=== PATIENT | female | born 1955 | race American Indian/Alaskan Native ===

== ENCOUNTER 2018-09-07 07:59 | Day surgery (SDC) | payer OTHER ==
[2018-09-07] MEDS ORDERED: NACL 0.9% 1000 ML 1,000 ML IV SCH (10:00)
--- NOTE | 2018-09-07 10:08 | Anesthesia Day of Surgery ---
Anesthesia Day of Surgery - Day of Surgery Patient Examined: Yes Patient H&P Reviewed: Yes Patient is NPO: Yes
--- NOTE | 2018-09-07 10:08 | Anesthesia Consultation ---
Anesthesia Consult and Med Hx Date of service: 09/07/18 - Airway Anesthetic Teeth Evaluation: Good ROM Head & Neck: Adequate Mental/Hyoid Distance: Adequate Mallampati Class: Class II Intubation Access Assessment: Probably Good - Pre-Operative Health Status ASA Pre-Surgery Classification: ASA2 Proposed Anesthetic Plan: MAC (Dm, high cholesterol) - Cardiovascular System Hx Hypertension: Yes
[2018-09-07] MEDS ORDERED: DIPRIVAN 10 MG/ML IV ONE ×2 (10:13)
[2018-09-07] MEDS ORDERED: NEO SYNEPHRINE ONE (10:50)
[2018-09-07] MEDS ORDERED: NACL 0.9% 100 ML ONE (10:50)
--- NOTE | 2018-09-07 10:51 | Procedure Note ---
Date of procedure: 09/07/18 Pre-op diagnosis: Lower GI Bleeding Post-op diagnosis: other Procedure: Colonoscopy with Biopsy Anesthesia: MAC Surgeon: PORTIA SNEED Pathology: list Specimen disposition: to lab Condition: stable Disposition: same day (Avoid aspirin and aspirin related products 5 days. Follow upin 1 to 2 weeks ([phone]).)
--- NOTE | 2018-09-07 10:59 | Operative Report ---
NAME OF PROCEDURE: Colonoscopy. INDICATIONS: This is a 63-year-old [place] female who had lately been having some lower GI bleeding. She has ever had a colonoscopy before. Colonoscopy was done to assess for the problem. DESCRIPTION OF PROCEDURE: Procedure was done after getting informed consent with MAC anesthesia. Initial rectal exam did show what appeared like a raised area in the rectum within possibly 10 cm of the anal verge. This was better noticed when the scope was passed through the rectum and on to the cecum. Cecum was identified with ileocecal valve and the appendiceal orifice. Visualization was fair to good. Cecum, ascending colon and transverse colon showed normal mucosa. There were a few minor left colon diverticula noted. In the rectum, about 10 cm from the anal verge showed possibly a 2 cm raised area, which appeared also to be hardened. Biopsies were done to rule out for possible adenocarcinoma. This was the possible cause of the patient's bleeding and on the retroverted view, the patient showed some minor internal hemorrhoid. IMPRESSION: Lower gastrointestinal bleeding from this rectal mass within 10 cm of the anal verge, possibly adenocarcinoma and the possible source of the GI bleeding. Minor left colon diverticula. Minor internal hemorrhoid. PLAN: Plan is to get a CEA level. Await for the biopsy results, possibly to get a CT scan of the abdomen and pelvis as an outpatient and to refer the patient to a surgeon or a colorectal surgeon for further evaluation and treatment. Again, there was minimal bleeding associated with the procedure. No complications associated with the procedure. RNJaimie was in the room throughout the entirety of the procedure. JOB# [id number] SINCERE/LATASHA
--- NOTE | 2018-09-07 11:01 | Post Anesthesia Evaluation ---
- Post Anesthesia Evaluation Patient Participated: Yes (sleeping) Airway Patent: Yes Stable Respiratory Function: Yes Nausea/Vomiting: No Temp > 96.8F: Yes Pain Manageable: Yes Adequeate Hydration: Yes Anesthesia Complications: No Block Receding Appropriately: Not Applicable Patient on Ventilator: No
[2018-09-07 11:36] VITALS: BP 101/60
== END 2018-09-07 08:00 | disposition home or self-care (01) ==
LOC: GIO 07:59
DX: C20 Malignant neoplasm of rectum (principal); K57.30 Diverticulosis of large intestine without perforation or abscess without bleeding; K64.8 Other hemorrhoids; E78.00 Pure hypercholesterolemia, unspecified; I10 Essential (primary) hypertension; Z98.890 Other specified postprocedural states; Z79.899 Other long term (current) drug therapy; Z79.84 Long term (current) use of oral hypoglycemic drugs; Z79.01 Long term (current) use of anticoagulants; Z88.8 Allergy status to other drugs, medicaments and biological substances
CPT/HCPCS: 36415; 45380; 82378; 82962; 88305; J2370; J2704; J7030